=== PATIENT | female | born 1995 | race American Indian/Alaskan Native ===

== ENCOUNTER 2020-02-06 16:04 | Inpatient (IN) | payer OTHER ==
[2020-02-06] VITALS (8 sets, daily range): BP systolic 108–147; BP diastolic 58–82
[~2020-02-06] VITALS: Ht 170.2 cm; Wt 108.6 kg
[2020-02-06] MEDS ORDERED: LACTATED RINGER'S 1000 ML IV STA (18:31)
[2020-02-06] MEDS ORDERED: OXYTOCIN DRIP 30 UNITS in IV 1 EA IV SCH (18:45)
[2020-02-06] MEDS: LR 1,000 ML IV SCH (19:39)
--- NOTE | 2020-02-06 20:16 | HPEPDOC ---
Obstetrical History & Physical General Date of Admission Feb 06, 2020 at 18:01 History of Present Illness Chief Complaint: Contractions, term Information Provided By: Patient Age: 24 : 4 Term: 2 Pre-term: 0 Abortions: 1 Livin Care Care: Good Care Dating Final EDC: Jan 30, 2020 Final EDC by: 1st trimester (US) EGA at Admission: 41 Antepartum Course Height (inches): 67 Pre- weight (lbs.): 200 Admission Weight (lbs.): 233 Past Medical History Past Obstetrical History #1: Past Obstetrical History: Primgravida (2014) Type of Delivery: Ceserean section Sex of : Female (8#13) Complications: Yes (arrest of dilation) Past Obstetrical History #2: Past Obstetrical History: Multigravida (2018) Type of Delivery: Spontaneous Vaginal Del. () Sex of Infant: Female (8#4) QUALITY COMPLIANCE COORDINATOR History: Spontaneous , Abnormal Pap Past Medical History Surgical History: section Family History Significant Family History: Heart disease, Hypertension, Other (Depression, crohn's) Social History Marital Status: Family situation: Spouse/partner home * Smoker: former Smoker Alcohol: Denies Drugs: denies Imunizations Tdap status: declined (allergic) Allergies Coded Allergies: diphtheria,pertussis (acellular),te (Unverified Allergy, Unknown, 02/06/20) Physical Examination Physical Examination GENERAL: Alert and oriented times three. BREAST: . ABDOMEN: Gravid and non-tender to touch. FETUS: Is vertex (VTX) by sterile vaginal examination (SVE), fetus is vertex (VTX) by Robbi. EFW 8-9# HEART RATE: Regular rate and rhythm. LUNGS: Clear to auscultation (CTA). EXTREMITIES: No edema. No clonus. Deep tendon reflexes (DTRs) + 2. Pertinent Laboratoy Data HIV: Negative Hepatitis B: Unknown Hepatitis C: Unknown Rapid Plasma Reagin: Nonreactive Rubella: Unknown Chlamydia/Gonorrhea: Negative Group B Streptococcus: Negative Glucose Tolerance Test: 136 Anatomy Ultrasound Ultrasound Date: Sep 12, 2019 Placenta Location: Anterior Normal Anatomy: Yes Placenta Previa: No Other Ultrasounds 07/01/19 dating 9w4d NANETTE 01/30/2020 01/02/2020 growth Cephalic, NANETTE 01/27/2020 2879gm 54% Steroid Therapy Steroid Therapy: No Vaginal Examination Dilation: 2cm Effacement: 50% Station: -2 Cervical Consistency: Medium Cervical Position: Middle Presentation: Cephalic presentation Assessment Heart Rate (FHR): 145 Variability: Moderate Accelerations: Positive Decelerations: None Tocometer Contractions: Yes Frequency: irregular, every 3-7 min. Duration: less than 60 seconds Strength: palpated as mild Assessment/Plan Assessment Isidra is a 24-year-old (G)4 para (P)2-0-1-2 at 41+0 weeks by 9-week ultrasound. Presents to Labor and Delivery (L&D) with complaints of contractions. Ms Will was receiving care in [place] and is desirous of a TOLAC. [place] has recently closed their L&D unit. Upon admit, she exhibited 2 mildly elevated blood pressures, 152/76 and 141/92. Per consult Dr Stoll, she is being admitted for augmentation of her labor. Plan Admit and orient. Warehouse Order Puller and consent. Reviewed risks/benefits of repeat vs TOLAC. Patient wishes to proceed with TOLAC Diet: Clear. Group B Streptococcus (GBS) negative. Labs and intravenous (IV) per unit protocol. Counseled on Pitocin and induction of labor (IOL). Lactated Ringers (LR): Bolus 500 mL, then at 125 mL/hr. Considering epidural for labor coping Anticipate successful . Dr Stoll aware of pt status and agrees with plan. C-S as appropriate. Joana Parra CNM Feb 06, 2020 20:16
[2020-02-06 20:33] LABS: HEMATOCRIT 37.5 % (36.0-47.0); HEMOGLOBIN 12.2 g/dl (12.0-15.5); MEAN CORPUSCULAR HEMOGLOBIN 28.6 pg (27.0-33.0); MEAN CORPUSCULAR HGB CONC 32.5 g/dl (32.0-36.5); PLATELET COUNT, AUTOMATED 207 10^3/uL (150-450); RED BLOOD COUNT 4.26 10^6/uL (4.00-5.40)
--- NOTE | 2020-02-06 20:49 | IPNPDOC ---
Text Note Date of Service The patient was seen on 02/06/20. NOTE Progress Cooks catheter placed, inflated with 60/40cc NS Per consult with Dr Stoll, will maintain low dose pitocin overnight. Cat I tracing. Mild UC VS,Fishbone, I+O VS, Fishbone, I+O Laboratory Tests 02/06/20 18:31 Joana Parra CNM Feb 06, 2020 20:48
[2020-02-06] MEDS ORDERED: hydrOXYzine 50 MG TAB PO SCH (21:00)
[2020-02-06 21:26] LABS: ALT/SGPT 16 U/L (12-78); BILIRUBIN,TOTAL 0.3 MG/DL (0.2-1.0); GLOMERULAR FILTRATION RATE > 60.0 (>60); LDH LACTATE DEHYDROGENASE 288 U/L (84-246); URIC ACID 4.6 MG/DL (2.6-6.0)
[2020-02-07] VITALS (27 sets, daily range): BP systolic 87–135; BP diastolic 53–85
[2020-02-07] MEDS: LR 1,000 ML IV SCH (03:13)
--- NOTE | 2020-02-07 03:57 | IPNPDOC ---
Text Note Date of Service The patient was seen on 02/07/20. NOTE Progress Cooks catheter out around 0200. Requested stadol and phenergan FH 120's primarily Cat I with episodes of minimal variability UC 2-4 minutes x 45-60+ seconds Resting comfortably at present VS,Ione, I+O VS, Chelsy, I+O Laboratory Tests 02/06/20 18:31 Joana Parra CNM Feb 07, 2020 03:57
[2020-02-07] MEDS ORDERED: BUTORPHANOL 2 MG/ML INJ (J0595) IV ONE ×2 (04:00→10:15)
[2020-02-07] MEDS ORDERED: PROMETHAZINE INJ 25 MG/ML VIAL (J2550) IV ONE ×2 (04:00→10:15)
[2020-02-07 12:24] LABS: CORD GAS ABE A -1.3; CORD GAS HCO3 A 27.3 MEQ/L; CORD GAS O2 SAT A 30.8 %; CORD GAS PCO2 A 61.5 mmHg; CORD GAS PH A 7.265 UNITS; CORD GAS PO2 A 16.8 mmHg; CORD GAS SBC A 21.7 MEQ/L; CORD GAS TCO2 A 29.2 MEQ/L
[2020-02-07 12:25] LABS: CORD GAS HCO3 V 21.3 MEQ/L; CORD GAS O2 SAT V 80.8 %; CORD GAS PCO2 V 33.1 mmHg; CORD GAS PH V 7.427 UNITS; CORD GAS SBC V 22.3 MEQ/L; CORD GAS TCO2 V 22.3 MEQ/L
[2020-02-07] MEDS ORDERED: RHOGAM 300 MCG (1500 IU) INJ (J2790) IM SCH (12:30)
[2020-02-07] MEDS ORDERED: IBUPROFEN 600MG TAB PO PRN (12:30)
[2020-02-07] MEDS ORDERED: MEASLES,MUMPS,RUBELLA VACCINE INJ (MMR-II) (90707) SC SCH (12:30)
[2020-02-07] MEDS ORDERED: ACETAMINOPHEN TAB 650MG DOSE (2X325MG) PO PRN (12:30)
[2020-02-07] MEDS ORDERED: PROMETHAZINE 25 MG TAB PO PRN (12:30)
[2020-02-07] MEDS ORDERED: DOCUSATE SODIUM 100 MG CAP PO PRN (12:30)
[2020-02-07] MEDS ORDERED: DIBUCAINE 1% OINTMENT 30GM TOP PRN (12:30)
[2020-02-07] MEDS ORDERED: ONDANSETRON 4MG/2ML VIAL IV PRN (12:30)
[2020-02-07] MEDS ORDERED: ACETAMINOPHEN 500 MG TAB PO PRN (12:30)
[2020-02-07] MEDS ORDERED: LR 1,000 ML IV SCH (12:45)
[2020-02-07] MEDS ORDERED: OXYTOCIN DRIP 30 UNITS in IV 1 EA IV SCH (12:45)
[2020-02-07] MEDS: IBUPROFEN 800 MG TAB PO PRN (21:02)
[2020-02-08 06:17] VITALS: BP 108/55
[2020-02-08] MEDS ORDERED: PRENATAL VITAMINS CHEWABLE TABLET PO SCH (09:00)
[2020-02-08] MEDS: IBUPROFEN 800 MG TAB PO PRN ×2 (09:04→20:39)
[2020-02-08 18:00] VITALS: BP 121/74
[2020-02-08] MEDS ORDERED: ACET-683 PO (19:44)
== END 2020-02-08 20:30 | disposition home or self-care (01) | DRG 560 ==
LOC: M LDO 16:04 → M LDI 18:01 → M OBS 02-07 15:02
PROVIDERS: ADMIT Advanced Practice Midwife; ATTEND Obstetrics & Gynecology
PROC: 10E0XZZ Delivery of Products of Conception, External Approach (ICD-10-PCS; principal; 2020-02-07)
PROC: 10907ZC Drainage of Amniotic Fluid, Therapeutic from Products of Conception, Via Natural or Artificial Opening (ICD-10-PCS; 2020-02-07)
DX: O34.211 Maternal care for low transverse scar from previous cesarean delivery (principal); Z3A.41 41 weeks gestation of pregnancy; O69.1XX0 Labor and delivery complicated by cord around neck, with compression, not applicable or unspecified; O66.0 Obstructed labor due to shoulder dystocia; Z37.0 Single live birth

== ENCOUNTER → 2020-09-02 | Outpatient (CLI) | payer OTHER ==
[~2020-09-02] MED LIST: ACET-683 PO
--- NOTE | 2020-09-02 17:33 | REPVR ---
PROCEDURE INFORMATION: Exam: MR Lumbar Spine Without Contrast. Exam date and time: 09/02/2020 5:00 PM Age: 25 years old Clinical indication: Low back pain; Additional info: Lower back pain TECHNIQUE: Imaging protocol: Multiplanar magnetic resonance images of the lumbar spine without intravenous contrast. COMPARISON: No relevant prior studies available. FINDINGS: Vertebrae: 2 mm of retrolisthesis of L5 on S1. No acute fracture seen. Spinal cord: The conus medullaris ends normally. The intervertebral discs are preserved in height and signal intensity. L1-L2: No significant disc disease. No significant spinal canal stenosis. No neural foraminal stenosis. L2-L3: Mild right facet arthropathy. No stenoses. L3-L4: Mild right facet arthropathy. No stenoses. L4-L5: Mild bilateral facet arthropathy. No stenoses. L5-S1: Slight retrolisthesis. Mild diffuse disc bulge and facet arthropathy. A 2-3 mm central disc protrusion with high-intensity zone does not contribute to central spinal canal stenosis or S1 nerve root impingement. Mild bilateral neural foraminal stenoses. Soft tissues: Mild edema in the back subcutaneous fat, nonspecific, potentially dependent/positional. IMPRESSION: Mild degenerative changes without high-grade stenoses or nerve root impingement. Electronically signed by: Alicia Escalera On 09/02/2020 17:33:04 PM
== END ==
LOC: M RAD 16:17
PROVIDERS: ATTEND Obstetrics & Gynecology
DX: M54.5 Low back pain (principal)

== ENCOUNTER 2021-07-09 18:27 | Observation (INO) | payer OTHER ==
[~2021-07-09] VITALS: Ht 170.2 cm; Wt 105.0 kg
[2021-07-09] MEDS ORDERED: ZOLO100T PO (18:40)
[2021-07-09] MEDS ORDERED: HOME MED LIST COMPLETE! XX SCH (19:05)
[2021-07-09] MEDS: NS 1,000 ML IV SCH (21:20)
[2021-07-09] MEDS ORDERED: KETOROLAC 30 MG/ML 1ML VIAL IV PRN (21:20)
[2021-07-09] MEDS ORDERED: MORPHINE 2 MG/ML 1ML VIAL (J2270) IV PRN ×2 (21:20)
[2021-07-09] MEDS: PIPERACILLIN/TAZOBACTAM SOD 3.375 GM in D5W MINI-BAG PLUS 50 ML IV SCH (21:32)
[2021-07-09] MEDS ORDERED: ONDANSETRON 4MG/2ML VIAL IV ONE (22:35)
[2021-07-09 23:23] VITALS: BP 113/74
[2021-07-10 02:00] VITALS: BP 112/55
[2021-07-10] MEDS: PIPERACILLIN/TAZOBACTAM SOD 3.375 GM in D5W MINI-BAG PLUS 50 ML IV SCH ×2 (04:16→10:13)
[2021-07-10 06:00] VITALS: BP 104/55
[2021-07-10 07:26] LABS: HEMATOCRIT 42.4 % (36.0-47.0); HEMOGLOBIN 13.6 g/dl (12.0-15.5); MEAN CORPUSCULAR HEMOGLOBIN 28.4 pg (27.0-33.0); MEAN CORPUSCULAR HGB CONC 32.1 g/dl (32.0-36.5); MEAN CORPUSCULAR VOLUME 88.5 fl (80.0-96.0); PLATELET COUNT, AUTOMATED 225 10^3/uL (150-450); RED BLOOD COUNT 4.79 10^6/uL (4.00-5.40); WHITE BLOOD COUNT 8.3 10^3/uL (4.0-10.0)
[2021-07-10 07:46] LABS: BLOOD UREA NITROGEN 10 MG/DL (7-18); CALCIUM LEVEL 8.5 MG/DL (8.5-10.1); CARBON DIOXIDE LEVEL 26 MEQ/L (21-32); CHLORIDE LEVEL 110 MEQ/L (98-107); CREATININE FOR GFR 0.82 MG/DL (0.55-1.30); GLOMERULAR FILTRATION RATE > 60.0 (>60); GLUCOSE, FASTING 90 MG/DL (70-100); SODIUM LEVEL 141 MEQ/L (136-145)
[2021-07-10] MEDS: NS 1,000 ML IV SCH (07:53)
[2021-07-10] MEDS ORDERED: PANTOPRAZOLE 40MG VIAL (C9113 PER 1) IV SCH (09:00)
[2021-07-10 10:00] VITALS: BP 112/71
[2021-07-10] MEDS ORDERED: AUGM500T34 PO (12:45)
[2021-07-10] MEDS ORDERED: cefTRIAXone SOD 1 GM in D5W MINI-BAG PLUS 50 ML IV ONE (13:15)
== END 2021-07-10 15:10 | disposition home or self-care (01) ==
LOC: EDBD 18:27 → M ED 18:27 → M ED INP 18:28 → ENRESERV 22:33 → M MSPAV 23:25
PROVIDERS: ADMIT Surgery; ATTEND Surgery
DX: R10.30 Lower abdominal pain, unspecified (principal); F32.9 Major depressive disorder, single episode, unspecified; F41.9 Anxiety disorder, unspecified; M54.9 Dorsalgia, unspecified; Z79.899 Other long term (current) drug therapy; Z79.2 Long term (current) use of antibiotics; Z87.891 Personal history of nicotine dependence
CPT/HCPCS: 36415; 80048; 85027; 93005; 96365; 96366; 96375; 96376; 99285; C9113; J0696; J2405; J2543

== ENCOUNTER → 2021-09-20 | Outpatient (REF) | payer OTHER ==
[~2021-09-20] MED LIST changes: +AUGM500T34 PO; +ZOLO100T PO
== END ==
LOC: M SFHCWAGY 15:48
PROVIDERS: ATTEND Obstetrics & Gynecology
DX: Z12.4 Encounter for screening for malignant neoplasm of cervix (principal)

== ENCOUNTER → 2022-09-05 | Outpatient (CLI) | payer OTHER | LOC: M WHC 08:46 | PROVIDERS: ATTEND Obstetrics & Gynecology | DX: N63.23 Unspecified lump in the left breast, lower outer quadrant (principal) ==

== ENCOUNTER → 2022-09-13 | Outpatient (CLI) | payer OTHER ==
[2022-09-13 14:20] VITALS: BP 130/72
== END ==
LOC: M WHCPRO 13:39
PROVIDERS: ATTEND Surgery
DX: R92.8 Other abnormal and inconclusive findings on diagnostic imaging of breast (principal); N63.23 Unspecified lump in the left breast, lower outer quadrant

== ENCOUNTER → 2023-09-05 | Outpatient (CLI) | payer MEDICAID, OTHER, SELFPAY ==
[~2023-09-05] MED LIST changes: +ASHW300C2 PO; +[UNRECOGNIZED DRUG - OTHER] PO
== END ==
LOC: M WHC 09:13
PROVIDERS: ATTEND Nurse Practitioner Women's Health
DX: D24.2 Benign neoplasm of left breast (principal)

== ENCOUNTER → 2025-05-20 | Outpatient (CLI) | payer OTHER | LOC: M WHC 13:40 | PROVIDERS: ATTEND Obstetrics & Gynecology | DX: N83.201 Unspecified ovarian cyst, right side (principal) ==

== ENCOUNTER → 2025-05-20 | Outpatient (CLI) | payer OTHER | LOC: M WHC 13:41 | PROVIDERS: ATTEND Surgery | DX: D24.2 Benign neoplasm of left breast (principal); R92.323 Mammographic fibroglandular density, bilateral breasts ==